=== PATIENT | male | born 1980 | race Caucasian/White ===

== ENCOUNTER 2022-11-21 14:15 | Emergency (ER) | payer OTHER ==
[~2022-11-21] VITALS: Ht 177.8 cm; Wt 117.9 kg
[2022-11-21] MEDS ORDERED: HYDROCORTISONE TOP (15:52)
== END 2022-11-21 16:00 | disposition home or self-care (01) ==
LOC: ER 14:15
DX: L23.7 Allergic contact dermatitis due to plants, except food (principal)
CPT/HCPCS: A9270; J0702; J1100; J3301